=== PATIENT | male | born 1990 | race Caucasian/White ===

== ENCOUNTER 2018-07-19 10:38 | Day surgery (SDC) | payer SELFPAY ==
[2018-07-14 13:40] VITALS: BMI 25.8
[2018-07-19 11:08] VITALS: BP 114/66; PULSE 62; RESP 16; TEMP 37.1; O2SAT 100; BMI 27.1
--- NOTE | 2018-07-19 11:16 | HP_ITS ---
Intake Vital Signs 07/14/18 Height 5 ft 9 in 07/14/18 Weight: 175 lb 1 oz 07/14/18 Body Mass Index (BMI) 25.8 07/14/18 Blood Pressure 148/71 H 07/14/18 Blood Pressure Location Rt brachial 07/14/18 Blood Pressure Position Sitting 07/14/18 Respiratory Rate 16 07/14/18 Pulse Rate 82 07/14/18 Pulse Ox 97 Intake Visit Reasons: Hernia Chief Complaint: LIH/ UMBILICAL House [employer] Helper Required: No Is patient in pain?: No Allergies No Known Allergies Allergy (Verified 07/19/18 11:07) Medications NK 07/14/18 [History Confirmed 07/14/18] PFSH Medical History Back pain (Acute) Surgical History History of right inguinal hernia repair (Acute) Family History Mother No problems noted. Social History Smoking Status: Current every day smoker ROS General General: No weight change, appetite, fatigue, colon cancer, breast cancer or weakness HEENT HEENT: No difficulty swallowing, eye injury, eye surgery, swollen glands or hoarseness Endo Endocrine: No thyroid disease, diabetes mellitus, thyroid cancer, Hair loss, heat intolerance or cold intolerance Musc Musculoskeletal: Yes back problems; no arthritis, rheumatoid arthritis, gout or joint pain Cardio Cardiovascular: No murmur, pacemaker, heart disease, atrial fibrillation, high blood pressure, heart attack, heart stent, palpitations, shortness of breat with exertion or chest pain Resp Respiratory: No shortness of breath, No sleep apnea, No cough, No COPD, No asthma, No emphysema, No wheezing Gastro Gastrointestinal: No abdominal pain, No nausea or vomiting, No diarrhea, No constipation, No blood in stool, No acid reflux, No hemorrhoids, No ulcers, No gallbladder problem, No black,tarry stools Neuro Neurologic: No weakness Exam Const General: no acute distress, well developed, well hydrated Orientation: oriented to person, oriented to place, oriented to time [facility] Head: normocephalic, atraumatic Ears: external ears normal Mouth: moist mucous membranes Eyes Sclera: sclerae normal Pupils: normal by confrontation Neck Neck: no lymphadenopathy noted Neck mass: No Thyroid: thyroid normal, symmetrical Chest Chest palpation & inspection: normal inspection of the chest Resp Effort & Inspection: normal respiratory effort Auscultation: clear to auscultation bilaterally Percussion: percussion normal Cardio Rate: regular rate Rhythm: regular rhythm Heart Sounds: no murmurs GI Palpation: soft, no hepatosplenomegaly, no masses, tender Rectal Exam: other Other: A Hernia left inguinal area. It is reducible on exam. Rectal exam deferred. Extrem General: normal to inspection, no clubbing, cyanosis or edema Assessment & Plan Problems 1. Left inguinal hernia K40.90 Plan My plan is to perform a laparoscopic left inguinal repair. The planned surgical procedure was discussed extensively with the patient. The risks, benefits, anticipated outcomes and possible complication were mentioned. The patient understands that all hernia repair surgery has a chance of recurrence and/or chronic post-operative pain. My staff has also explained the procedure in understandable terms and the patient was given the option to take printed material concerning the planned procedure. The patient had the opportunity to ask questions concerning the planned procedure. The patient freely consents to the planned procedure. Coding Level of Care Code Off vis,new,level 3 Diagnoses Left inguinal hernia K40.90
[2018-07-19] MEDS: Cefazolin 2 GM in 0.9% Normal Saline 100 ML IV (14:03)
[2018-07-19] MEDS: Bupivacaine Mpf 0.5% 30 ML VIAL (14:45)
--- NOTE | 2018-07-19 14:46 | DCINST_ITS ---
Discharge Diet: Light diet - advance as tolerated Discharge Activity: Return to Normal Activity, May Drive - when you are no longer taking narcotic pain medications., May Shower - with the bandage in place 1-2 days after surgery. Lifting Restrictions: 20 pounds for 8 weeks. Additional Activity Instructions:: Climbing stairs is fine, walking is encouraged. Sitting in bed may be uncomfortable. Sitting up using your lateral muscles (sitting up sideways) is usually more comfortable. Do not drive, work heavy equipment of sign legal documents for 24 hours. If your hernia repair was an ingunial repair, you may have scrotal swelling, an ice pack and/or athletic support can provide more comfort. Pain medications may cause nausea, you should typically eat light foods as you take your pain medications. Pain medications may also cause constipation. If you have difficulty with this, discuss with your doctor. Call your doctor if your incision/area has: Continuous Slow Oozing, Sudden Increased Bleeding, Increased Pain/ Swelling, Increased Redness, Foul Smelling Discharge Call your doctor if you observe: Fever of 101 or Higher Suture Line Care: Avoid Pulling/Pushing, Avoid Pinching/Bending Additional Dressing/Incision Instructions:: Leave the operative bandage on for 2-3 days. When you remove the bandage, leave the steri-strips on place until your follow up appointment or they fall off. Allergies/Adverse Reactions: Allergies No Known Allergies Allergy (Verified 07/19/18 11:07) Medications to take at Discharge Oxycodone HCl/Acetaminophen [Percocet 5/325] 1 - 2 tab PO Q4H PRN PRN 6 Days #30 tab 07/19/18 The following prescriptions were given: Oxycodone HCl/Acetaminophen [Percocet 5/325] 1 - 2 tab PO Q4H PRN PRN 6 Days #30 tab PRN Reason: Pain Primary Care Physician: Nadeem Pantoja DO [Primary Care Provider] - Test Results: Test results from this visit will be discussed in further detail at your follow- up appointment, if applicable. Please Follow Up With: Bon Olivarez MD - [phone] When: Plan to have a follow up appointment in 7 days. Call to schedule.
--- NOTE | 2018-07-19 14:46 | PCM.OPRPT ---
Problem List (1) Left inguinal hernia Status: Acute Report of Operation Date of Procedure: 07/19/18 Pre-Operative Diagnosis: Left inguinal hernia Post-Operative Diagnosis: Same Surgery/Procedure Performed:: Laparoscopic left inguinal hernia repair Type of Anesthesia:: General Anesthesiologist: Gerry Lucero Estimated Blood Loss (mL): < 25 cc Fluids Replaced: 1400 cc lr Description of Procedure: Patient was brought into the operating room. Placed in the supine position. Under excellent general trach intubation the abdomen was sterilely prepped and draped in usual fashion. Local was injected infraumbilically. An old incision was opened up. I dissected down to the fascia. Fascia was grasped with a Maddie. Varies needle was placed inside the abdomen. The abdomen was insufflated to 15 torr. A 10/12 trocar was placed without difficulty. It was flank by 2 #5 trochars placed under direct visualization. I placed the patient in the headdown and rotated to the right. He had a few adhesions in the right lower quadrant which I removed showing his old previous mesh to be in good placement. I scored the peritoneum on the left. I dissected down to Augusto's ligament. I dissected laterally bringing back in indirect inguinal hernia. I dissected it free from the cord and vessel structures without difficulty. I had excellent hemostasis. I dissected further laterally. I fashioned a large 3 DMax mesh into the left inguinal area. I tacked it to the Augusto's ligament with a pro-tacker I tacked it superiorly and laterally with sparing tax. It laid completely flat. I had good hemostasis. I reperitonealized area covering the mesh completely with a pro-tack. I inspected I saw no adhesions I saw no other lesions. I removed the trochars under direct visualization. Good hemostasis was noted. Close the fascia the umbilical port with a [id number] stitch of 0 Vicryl. Local was injected. Skin incisions were closed with subcuticular stitches of 4-0 Monocryl. Steri-Strips are applied. Sterile dressings were applied. The patient tolerated the procedure well. - Admit VTE Documentation VTE Present on Admission: No VTE Mechan Device Prophylaxis: SCD's VTE Pharm Prophylaxis ordered?: No Reason prophylaxis not ordered:: Treatment Not Indicated
[2018-07-19 15:00] VITALS: BP 114/66; BP 132/87; PULSE 82; RESP 16; TEMP 36.5; O2SAT 100
[2018-07-19 15:15] VITALS: BP 104/59; BP 114/66; PULSE 75; RESP 16; O2SAT 99
[2018-07-19 15:30] VITALS: BP 114/66; BP 118/75; PULSE 72; RESP 16; O2SAT 99
[2018-07-19 15:48] VITALS: BP 112/69; BP 114/66; PULSE 60; RESP 16; TEMP 36.6; O2SAT 97
[2018-07-19 18:00] VITALS: BP 114/66; BP 121/65; PULSE 70; RESP 16; TEMP 37.3; O2SAT 96
== END 2018-07-19 18:00 | disposition home or self-care (01) ==
LOC: SDC 10:45 → AC 10:45
PROVIDERS: Family Provider Family Medicine; PCP Family Medicine; Referring Provider Surgery; Visit Provider Surgery
PROC: (CPT 49650; principal; 2018-07-19 12:50)
DX: K40.90 Unilateral inguinal hernia, without obstruction or gangrene, not specified as recurrent (principal); F17.200 Nicotine dependence, unspecified, uncomplicated
CPT/HCPCS: 00840; 49650; J7120; C1781; J2405